=== PATIENT | male | born 1955 | race Caucasian/White ===

== ENCOUNTER 2017-09-13 14:15 | Inpatient (IN) | payer BC, OTHER ==
[~2017-09-13] VITALS: Ht 170.2 cm; Wt 96.2 kg
--- NOTE | ~2017-09-13 | EKG ---
[address] [address] [address] [address] ELECTROCARDIOGRAM REPORT Name: NONI DANIEL [facility] [id number] Admission: 09/13/17 Attend Phys: Discharge: Date of : 57 Report #: [id number] THIS REPORT FOR: //name// [facility] ED Test Date: 2017-09-13 Test Time: 14:20:25 Pat Name: NONI DANIEL Department: Room: Gender: Laserist: [facility] : 1955 Requested By: Lg Alonzo Order Number: [id number] MD: Fernando Shaver Measurements Intervals [place] Rate: 54 P: -21 WI: 170 QRS: 33 QRSD: 106 T: QT: 457 QTc: 434 Interpretive Statements Sinus rhythm Borderline T abnormalities, inferior leads Compared to ECG 03/01/2015 08:00:56 Sinus bradycardia no longer present Possible ischemia no longer present T-wave abnormality still present Electronically Signed On 09-13-2017 16:30:10 PREPRESS OPERATOR by Fernando Shaver [email or web address] <ELECTRONICALLY SIGNED> By: Fernando Shaver MD 09/13/17 1630 1420 1420 Fernando Shaver MD /RIAZ
--- NOTE | ~2017-09-13 | 2DMMODE ---
[facility] [address] [place] [address] 2 D/M-MODE ECHOCARDIOGRAM Name: NONI DANIEL Room #: 429-P [facility] IN ..#: [id number] Admission: 09/13/17 Attend Phys: Sam Joe Discharge: Date of : 57 Date of Service: 09/14/17 1027 Report #: [id number] THIS REPORT FOR: //name// APPROVED REPORT Study performed: 09/14/2017 09:39:17 EXAM: Comprehensive 2D, Doppler, and color-flow Echocardiogram Patient Location: Echo lab Room #: 429 Status: routine BSA: 2.07 HR: 71 bpm BP: 142/77 mmHg Rhythm: NSR Other Information Study Quality: Excellent Indications Near syncope, history of CHF. Hx: CAD, stent, ISCM, HTN, HLP 2D Dimensions RVDd: 29.43 mm IVSd: 12.66 (7-11mm) LVDd: 50.01 mm PWd: 13.47 (7-11mm) Ascending Ao: 37.46 (22-36mm) LVDs: 39.27 (25-40mm) Aortic Root: 41.72 mm Volumes Left Atrial Volume (Systole) Single Plane 4CH: 77.87 mL Single Plane 2CH: 68.57 mL LA ESV Index: 37.00 mL/m2 Aortic Valve AoV Peak Harrison.: 1.43 m/s AO Peak Gr.: 8.22 mmHg LVOT Max P.40 mmHg LVOT Max V: 0.92 m/s Mitral Valve E/A Ratio: 0.8 MV Decel. Time: 185.24 ms MV E Max Harrison.: 0.71 m/s MV A Harrison.: 0.89 m/s [facility] [address] [place] [address] 2 D/M-MODE ECHOCARDIOGRAM Name: NONI DANIEL Room #: 429-P [facility]#: [id number] Admission: 09/13/17 Attend Phys: Sam Joe Discharge: Date of : 57 Date of Service: 09/14/17 1027 Report #: [id number] PHT: 53.72 ms IVRT: 86.51 ms Pulmonary Valve PV Peak Harrison.: 0.96 m/s PV Peak Gr.: 3.72 mmHg Pulmonary Vein P Vein S: 0.58 m/s P Vein A: 0.36 m/s P Vein D: 0.44 m/s P Vein A Dur.: 110.7 msec P Vein S/D Ratio: 1.32 Tricuspid Valve TR Peak Harrison.: 2.54 m/s RAP Estimate: 5.00 mmHg TR Peak Gr.: 25.81 mmHg PA Pressure: 31.00 mmHg Left Ventricle The left ventricle is normal size. mild hypokinesis noted of the apex Mild concentric left ventricular hypertrophy. Left ventricular systolic function is mildly decreased. LVEF is 45-50%. Mild diastolic dysfunction is present (impaired relaxation pattern). Right Ventricle The right ventricle is normal size. The right ventricular systolic function is normal. Atria Left atrium is mildly dilated. The right atrium size is normal. Aortic Valve The aortic valve is normal in structure. No aortic regurgitation is present. There is no aortic valvular stenosis. Mitral Valve The mitral valve is normal in structure. Trace to mild mitral regurgitation. Tricuspid Valve The tricuspid valve is normal in structure. Trace tricuspid regurgitation. Estimated PAP is 31mmHg. Pulmonic Valve The pulmonary valve is normal in structure. Trace pulmonic regurgitation. [facility] [address] [place] [address] 2 D/M-MODE ECHOCARDIOGRAM Name: NONI DANIEL Room #: 429-P [facility] IN ..#: [id number] Admission: 09/13/17 Attend Phys: Sam Joe Discharge: Date of : 57 Date of Service: 09/14/17 1027 Report #: [id number] [place] Aortic root is dilated at 4.2cm. Ascending aorta measures at the upper limits of normal. IVC is normal in size and collapses >50% with inspiration. Pericardium There is no pericardial effusion. <Conclusion> Mild concentric left ventricular hypertrophy. LVEF is 45-50%. Left atrium is mildly dilated. <ELECTRONICALLY SIGNED> By: Lorne Crawford MD, FACC 09/14/17 1027 1027 1027 Lorne Crawford MD, FACC /INF
--- NOTE | ~2017-09-13 | D ---
[facility] [place] [address] DISCHARGE SUMMARY Name: NONI DANIEL Room #: 429-P [facility] IN [facility]#: [id number] Admission: 09/13/17 Attend Phys: Sam Joe MD Discharge: 09/14/17 Date of : 57 Report #: [id number] THIS REPORT FOR: //name// CC: Ida Joe DATE OF SERVICE: 09/14/2017 HISTORY OF PRESENT ILLNESS: The patient is a 62-year-old man with complicated cardiac history, who came to the hospital with dizziness and presyncope. The patient's blood pressure was found to be in 80s systolic, as well as his heart rate was in 40s. The patient is on Coreg. Lately, he has had diminished p.o. intake, and alcohol the night before admission. Mild hypoglycemia was also reported, with blood glucose of 43. The patient has no diabetes. Please refer to admission H and P for details. HOSPITALIZATION COURSE: The patient was hospitalized. Coreg was held. He was given IV fluids. By next morning, the patient's blood pressure was normal, heart rate was above 60, and he was completely asymptomatic. His blood work is unremarkable. His Accu-Cheks remained normal. The patient's near syncope and symptoms are most likely related to dehydration, as well as being on blood pressure medications, including Coreg. Coreg dose is reduced from 12.5 mg a day, to 6.25 mg twice a day. The patient has had cardiac echo, that showed ejection fraction of 45%-50%, which is better from years ago. At that time, ejection fraction was between 40 and 45%. The patient will be discharged home on outpatient followup, in 1 week with his record center coordinator. DISCHARGE DIAGNOSES: 1. Near syncope, due to dehydration and bradycardia from Coreg, as detailed above. 2. One episode of hypoglycemia with glucose of 43. No hypoglycemia is detected during the hospital stay. The patient has no diabetes, he does not take medications that can lower blood sugar. SECONDARY DIAGNOSES: Includes history of myocardial infarction, status post stents; hypertension, and Ceballos's esophagus. DISCHARGE MEDICATIONS: Please refer to medication reconciliation list. As noted, Coreg dose is reduced from 12.5 mg b.i.d., to 6.25 mg b.i.d. DISPOSITION: The patient is discharged home. [address] [address] DISCHARGE SUMMARY Name: TATESHANENONI Room #: 429-P [facility] IN [facility]#: [id number] Admission: 09/13/17 Attend Phys: Sam Joe MD Discharge: 09/14/17 Date of : 57 Report #: [id number] FOLLOWUP PLAN: Follow up with record center coordinator in 1 week. <ELECTRONICALLY SIGNED> By: Sam Joe MD 09/17/17 1906 1047 1143 Sam Joe MD /my
--- NOTE | ~2017-09-13 | HC ---
[facility] [place] [address] CONSULTATION Name: NONI DANIEL Room #: 429-P [facility]#: [id number] Admission: 09/13/17 Attend Phys: Sam Joe MD Discharge: 09/14/17 Date of : 57 Report #: [id number] THIS REPORT FOR: //name// CC: Iad Joe DATE OF SERVICE: 09/13/2017 HISTORY OF PRESENT ILLNESS: The patient is a 62-year-old white male who I was asked to see in the hospital after he had a dizzy spell. The patient has a long history of heart disease. He had previous stents placed in his LAD and right coronary artery in 2009 at [facility]. Repeat heart catheterization in 2012 showed no restenosis of the stents, but a chronically occluded circumflex artery and an ejection fraction of 40%. His last nuclear stress test in 2014 showed an inferior scar with some karime-infarct ischemia. Previous screening showed minimal carotid plaque. Recently, the patient has been doing well and works out on a regular basis both at his home and at a gym. He denies any recent chest pain. He does get short of breath if he over exerts himself. He has had no significant edema. Denies any recent palpitations. Recently, the patient had a runny nose and a cough. This has been going on for 2 days. Today, the patient did not eat breakfast. He then went out to lunch with his . When he was at the cafeteria, he felt lightheaded and fatigued. He then became diaphoretic and laid his head on the table. He did not lose consciousness. Paramedics were called. He was noted to have low heart rate and blood pressure. He was brought to the emergency room for further evaluation and treatment here at [facility]. He denied any palpitations with the episode. He had had no recent vomiting or bleeding. He had had no recent fever. He did not lose consciousness. There was no seizure activity. PAST MEDICAL HISTORY: Significant for hip surgery. He had a recent injection in his knee for arthritis. He has a history of hypertension, hyperlipidemia and Ceballos's esophagus. CURRENT MEDICATIONS: Include: Amlodipine 5 mg a day, carvedilol 12.5 mg twice a day, Plavix 75 mg a day, Crestor 40 mg a day, lisinopril 20 mg twice a day and Protonix 40 mg a day. ALLERGIES: He has no known drug allergies. FAMILY HISTORY: Negative for heart disease. 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 Lives in [place], [place] with his . He used to smoke, no longer smokes, but does have a cigarette only very rarely. Rarely drinks alcohol. [facility] [address] [place] [address] CONSULTATION Name: NONI DANIEL Rhea Room #: 429-P [facility] IN .R.#: [id number] Admission: 09/13/17 Attend Phys: Sam Joe MD Discharge: 09/14/17 Date of : 57 Report #: [id number] REVIEW OF SYSTEMS: He has had no history of stroke, asthma, peptic ulcer disease or liver disease. He has had a colon polyp removed in the past. No history of cancer. No chronic skin condition. PHYSICAL EXAMINATION: GENERAL: Revealed a middle-aged male, lying in his stretcher. He appeared in no distress. VITAL SIGNS: He had a blood pressure 90/70 and pulse is 50. He was afebrile. HEENT: He was anicteric. Conjunctivae pink. Mucous membranes appear moist. NECK: Veins do not appear distended. No carotid bruits. CHEST: Clear to auscultation. CARDIAC: Regular rate and rhythm, no murmur. ABDOMEN: Soft and nontender. EXTREMITIES: Had no edema. Posterior tibial pulse 2+ bilaterally. SKIN: Warm and dry. NEUROLOGIC: Nonfocal. LYMPH: No adenopathy. MUSCULOSKELETAL: Joint effusions. RADIOLOGICAL DATA: ECG shows sinus bradycardia and nonspecific ST-segment changes and compared to ECG from 2015, the T-wave changes actually appear less prominent. His workup in the Emergency Room today, he had a portable chest x-ray that showed normal heart size and clear lung field. LABORATORY DATA: He had lab work. Sodium was 139, potassium 3.9, his BUN is 18, creatinine 1.3 and glucose was 111. His troponin was 0.04. His white blood cell count was 5.7 and hemoglobin 14.6. IMPRESSION AND RECOMMENDATIONS: 1. Dizzy spell. Suspect vasovagal. The patient has not eaten earlier today. 2. Coronary artery disease. Previous stents. No recent angina. I will continue Plavix. 3. Bradycardia. I did recommend decreasing Coreg to 6.25 mg twice a day. 4. Hypotension. I would hold his calcium divya, LOC inhibitor and beta divya at this time. 5. Hyperlipidemia. The patient is on a statin drug. 6. Previous tobacco abuse. 7. History of Ceballos's esophagus. <ELECTRONICALLY SIGNED> By: Lorne Crawford MD, [facility] 09/15/17 1108 1742 0326 Lorne Crawford MD, FACC /nt
[~2017-09-13 14:15] MED LIST: ASPIRIN EC81 M1 PO; CARVEDILOL12.5 MG PO; COREG PO; CRESTOR40 MG PO; EFFIENT10 MG PO; LISINOPRIL5 MG PO; NITROGLYCERIN4.1 GM TL; PEGASUS; PRILOSEC 20 MG20 MG PO
[2017-09-13 14:20] VITALS: BP 90/67
[2017-09-13 14:57] LABS: HEMATOCRIT 43.5 % (42.0-52.0); HEMOGLOBIN 14.6 gm/dL (14.0-18.0); MCHC 33.6 g/dL (28.0-37.0); MCV 89.2 fL (80.0-100.0); RBC 4.88 mil/uL (4.50-6.00); RDW 13.8 % (10.5-14.5); WBC 5.7 thou/uL (4.0-11.0)
[2017-09-13] MEDS ORDERED: NORVASC5 MG PO (15:04)
[2017-09-13] MEDS ORDERED: PROTONIX40 M1 PO (15:04)
[2017-09-13 15:10] LABS: ANION GAP 8 mmol/L (7-16); BUN 18 mg/dL (7-18); CALCIUM 8.6 mg/dL (8.5-10.1); CHLORIDE 105 mmol/L (98-107); CO2 26 mmol/L (21-32); CREATININE 1.3 mg/dL (0.7-1.3); GLUCOSE 111 mg/dL (74-106); POTASSIUM 3.9 mmol/L (3.5-5.1); SODIUM 139 mmol/L (136-145)
[2017-09-13 15:18] LABS: TROPONIN-I < 0.04 ng/mL (<0.06)
[2017-09-13 18:29] VITALS: BP 122/60
[2017-09-13 20:46] VITALS: BP 127/61
[2017-09-14 03:00] VITALS: BP 137/72
[2017-09-14 05:15] LABS: HEMATOCRIT 40.2 % (42.0-52.0); HEMOGLOBIN 13.6 gm/dL (14.0-18.0); MCH 29.9 pg (26.0-34.0); MCHC 33.9 g/dL (28.0-37.0); MCV 88.4 fL (80.0-100.0); PLATELET COUNT 138 thou/uL (150-400); RBC 4.55 mil/uL (4.50-6.00); RDW 14.2 % (10.5-14.5); WBC 5.1 thou/uL (4.0-11.0)
[2017-09-14 05:21] LABS: CREATININE 0.9 mg/dL (0.7-1.3); POTASSIUM 3.7 mmol/L (3.5-5.1)
[2017-09-14 07:16] LABS: ABSOLUTE NEUTROPHILS 3.2 thou/uL (1.4-8.2)
[2017-09-14 07:17] LABS: ANISOCYTOSIS SLIGHT
[2017-09-14 07:20] VITALS: BP 142/77
[2017-09-14] MEDS ORDERED: CARVEDILOL12.5 MG PO (10:50)
[2017-09-14 11:04] VITALS: BP 142/77
== END 2017-09-14 11:23 | disposition home or self-care (01) | DRG 641 ==
LOC: ER 14:15 → EROBS 16:38 → 4E 18:30 → ENTRNSPT 09-14 11:09 → EDTRNSPTSTS 09-14 11:15 → 4E 09-14 11:23
PROVIDERS: Emergency Medicine; Internal Medicine Endocrinology, Diabetes & Metabolism
DX: E86.0 Dehydration (principal); I10 Essential (primary) hypertension; K22.70 Barrett's esophagus without dysplasia; F17.210 Nicotine dependence, cigarettes, uncomplicated; E16.2 Hypoglycemia, unspecified; R00.1 Bradycardia, unspecified; E78.5 Hyperlipidemia, unspecified; I95.9 Hypotension, unspecified; I25.10 Atherosclerotic heart disease of native coronary artery without angina pectoris; G47.30 Sleep apnea, unspecified; I25.2 Old myocardial infarction; Z98.61 Coronary angioplasty status; Z79.899 Other long term (current) drug therapy; Z79.82 Long term (current) use of aspirin
CPT/HCPCS: 10183

== ENCOUNTER 2019-07-25 13:39 | Emergency (ER) | payer BC, OTHER ==
[~2019-07-25] VITALS: Ht 170.2 cm; Wt 106.1 kg
[~2019-07-25 13:39] MED LIST changes: +NORVASC5 MG PO; +PROTONIX40 M1 PO
[2019-07-25 14:19] LABS: ABSOLUTE NEUTROPHILS 4.1 thou/uL (1.4-8.2); BASOPHILS 1.1 % (0.0-2.0); EOSINOPHILS 2.4 % (0.0-3.0); HEMATOCRIT 46.9 % (42.0-52.0); HEMOGLOBIN 15.6 gm/dL (14.0-18.0); LYMPHOCYTES 25.1 % (24.0-44.0); MCH 29.9 pg (26.0-34.0); MCHC 33.3 g/dL (28.0-37.0); MCV 89.9 fL (80.0-100.0); MONOCYTES 10.6 % (1.0-8.0); PLATELET COUNT 190 thou/uL (150-400); POLYS 60.8 % (36.0-66.0); RBC 5.21 mil/uL (4.50-6.00); RDW 13.8 % (10.5-14.5); WBC 6.8 thou/uL (4.0-11.0)
[2019-07-25 14:25] LABS: ANION GAP 11 mmol/L (7-16); BUN 16 mg/dL (7-18); CALCIUM 9.2 mg/dL (8.5-10.1); CHLORIDE 104 mmol/L (98-107); CO2 25 mmol/L (21-32); GLUCOSE 104 mg/dL (74-106); SODIUM 140 mmol/L (136-145)
[2019-07-25 14:27] LABS: PROTIME 10.3 Seconds (9.3-11.4)
[2019-07-25 14:34] LABS: ALBUMIN 3.8 g/dL (3.4-5.0); SGOT 16 U/L (15-37); SGPT 34 U/L (30-65); TOTAL BILIRUBIN 0.5 mg/dL (<0.1-1.0); TOTAL PROTEIN 7.6 g/dL (6.4-8.2); TROPONIN-I <0.06 ng/mL (<0.06)
--- NOTE | 2019-07-25 15:06 | EKG ---
[address] [place] [address] ELECTROCARDIOGRAM REPORT Name: NONI DANIEL [facility] [id number] Admission: 07/25/19 Attend Phys: Discharge: Date of : 57 Report #: [id number] THIS REPORT FOR: //name// [facility] ED Test Date: 2019-07-25 Test Time: 14:18:59 Pat Name: NONI DANIEL Department: Room: Gender: Cyber Incident Responder: Myrtle KRISHNAMURTHY : 1955 Requested By: Jen Boswell Order Number: [id number] MD: Fernando Shaver Measurements Intervals [place] Rate: 70 P: 33 IN: 195 QRS: 7 QRSD: 101 T: 17 QT: 393 QTc: 425 Interpretive Statements Sinus rhythm Ventricular premature complex Abnormal R-wave progression, late transition Compared to ECG 09/13/2017 14:20:25 Ventricular premature complex(es) now present T-wave abnormality no longer present Electronically Signed On 07-25-2019 15:06:05 AGRICULTURAL RESEARCH DIRECTOR by Fernando Shaver [email or web address] <ELECTRONICALLY SIGNED> By: Fernando Shaver MD 07/25/19 1506 1418 1418 Fernando Shaver MD /RIAZ
[2019-07-25 16:29] VITALS: BP 130/77
[2019-07-26] MEDS ORDERED: PLAVIX 75 MG TA75 MG PO (16:14)
[2019-07-26] MEDS ORDERED: TIMOLOL MALEATE5 M2 OPHTHALMIC (16:35)
== END 2019-07-25 16:29 | disposition home or self-care (01) ==
LOC: ER 13:39
PROVIDERS: Emergency Medicine
DX: R20.2 Paresthesia of skin (principal); R53.1 Weakness; I10 Essential (primary) hypertension; G47.30 Sleep apnea, unspecified; Z95.5 Presence of coronary angioplasty implant and graft; Z96.652 Presence of left artificial knee joint; Z87.891 Personal history of nicotine dependence

== ENCOUNTER 2019-07-26 10:46 | Inpatient (IN) | payer BC, OTHER ==
[~2019-07-26] VITALS: Ht 167.6 cm; Wt 110.7 kg
--- NOTE | ~2019-07-26 | HC ---
[facility] [place] [address] CONSULTATION Name: TATESHANENONI Rhea Room #: 203-P [facility] IN ..#: [id number] Admission: 07/26/19 Attend Phys: Jeff Mercado MD Discharge: Date of : 57 Report #: [id number] THIS REPORT FOR: //name// CC: Jeff Baird DATE OF SERVICE: 07/27/2019 REASON FOR CONSULTATION: Embolic event. HISTORY OF PRESENT ILLNESS: This is a very pleasant 64-year-old gentleman with a prior history of coronary artery disease, having had myocardial infarction in 2008 with stenting in 2008 and 2010, presented to the Emergency Room with weakness and lack of strength of the left side. The patient states that he came to the Emergency Room approximately 2 days ago for similar symptoms and thought he had improved at discharge from the ER. Upon entering his car at that time, he notes there was no improvement, but he has already been discharged and he proceeded home. In the interim, there has been no improvement of the symptomatology at all. The patient describes continued weakness of the left arm and left leg where he is walking "as a drunk." He denies orthopnea or PND. He has not had any recent episodes of chest tightness, heaviness or fullness similar or dissimilar from his myocardial infarction. He denies any palpitations. He had no amaurosis fugax. PAST MEDICAL HISTORY: 1. Coronary artery disease as stated above. 2. Hypertension. 3. Gastroesophageal reflux with Ceballos's disease. 4. Sleep apnea syndrome, intolerant of CPAP. PAST SURGICAL HISTORY: 1. Significant for coronary stenting as stated above. 2. Left total hip replacement in 2005. MEDICATIONS: At home are Coreg 12.5 mg tablets 6.25 b.i.d., Plavix 75 mg daily, timolol ophthalmic daily, aspirin 81 mg daily, rosuvastatin 40 mg daily, lisinopril 5 mg daily, sublingual nitroglycerin p.r.n., pantoprazole 40 mg daily, amlodipine 5 mg daily. ALLERGIES: No known drug allergies. SOCIAL HISTORY: The patient is . Consumes alcohol socially. He is a former smoker, has not smoked since his myocardial infarction. Does not use recreational drugs. Does not exercise regularly [place] [address] CONSULTATION Name: NONI DANIEL Rhea Room #: 203-P [facility] IN [facility].#: [id number] Admission: 07/26/19 Attend Phys: Jeff Mercado MD Discharge: Date of : 57 Report #: [id number] REVIEW OF SYSTEMS: Except for symptoms previously mentioned and those commensurate with comorbid state, the 10-point review of system is negative. LABORATORY DATA: Demonstrates a potassium of 4.0, BUN and creatinine are 15 and 1.1. HDL is 39, LDL 72 with a total cholesterol of 130. H and H is 15.6 and 46.5 with a platelet count of 190,000. RADIOLOGIC: Demonstrates MRI of the brain with multiple small scattered area which may represent tiny infarcts, likely of embolic origin. Electrocardiogram: Normal sinus rhythm, nonspecific ST-T wave changes. PHYSICAL EXAMINATION: VITAL SIGNS: Noted and reviewed in the chart. HEENT: Normocephalic, atraumatic. Pupils are equal, round, reactive to light and accommodation. Extraocular muscles are intact. Sclerae and conjunctivae are anicteric. NECK: JVD is normal. Carotid upstrokes are bilaterally symmetrical. No bruits are heard. No thyromegaly. No lymphadenopathy. LUNGS: Clear to auscultation. No wheezes, rhonchi or crackles. No CVA tenderness. CARDIAC: Demonstrates a regular rhythm. Normal first and second heart sounds. No ventricular or atrial gallops, no rubs noted. No murmurs. No lifts or heaves, PMI normal. ABDOMEN: Soft, nontender, nondistended. Normal bowel sounds. EXTREMITIES: Without cyanosis, clubbing or edema. Distal pulses are intact. DTR symmetrical. NEUROLOGIC: Cranial nerves 2-12 are grossly normal and symmetrical. PSYCHIATRIC: Alert, oriented with normal affect. SKIN: Warm and dry. IMPRESSION: 1. Left-sided weakness with corresponding right-sided lesions consistent with embolic event. The patient has an MRA of the [place], etc. and carotid duplex that are pending. If there is no significant abnormality in his carotid arteries, then the likelihood of atrial fibrillation being the source of the emboli is possible and monitoring will be appropriate as an outpatient. Until the diagnosis of atrial fibrillation can be established, anticoagulation with full anticoagulants would be not appropriate. 2. Coronary artery disease, status post stenting, asymptomatic, doing very well clinically. He states he has had a perfusion scan within the last 3-5 years, which was negative and was done for routine followup. In view of this, I am not going to make any other changes at this juncture. 3. Dyslipidemia. The patient is on significant dose of rosuvastatin and his LDL is under 100, but not under 70. I discussed the [place] [employer] step 1 diet with him and his spouse of which they do voice understanding. [facility] [address] [place] [address] CONSULTATION Name: NONI DANIEL Room #: 203-P [facility] IN .[place].#: [id number] Admission: 07/26/19 Attend Phys: Jeff Mercado MD Discharge: Date of : 57 Report #: [id number] 4. Hypertension. The patient states his blood pressure is under good control and has not had any episodes of elevation. In addition to this, the appearance of MRI is not that of hypertensive cerebrovascular accidents, but more of embolic and therefore no need to make any other changes. I did touch base and discussed with him nonpharmacologic treatment of hypertension for which they both voiced understanding. By: 20 32 Gregorio Coleman MD /nt
[2019-07-26 10:47] VITALS: BP 136/79
[2019-07-26 11:34] LABS: HEMOGLOBIN 15.6 gm/dL (14.0-18.0); RDW 13.9 % (10.5-14.5)
[2019-07-26 11:36] LABS: ABSOLUTE NEUTROPHILS 3.7 thou/uL (1.4-8.2); BASOPHILS 0.8 % (0.0-2.0); HEMATOCRIT 46.5 % (42.0-52.0); LYMPHOCYTES 24.5 % (24.0-44.0); MCH 30.3 pg (26.0-34.0); MCHC 33.6 g/dL (28.0-37.0); MCV 90.4 fL (80.0-100.0); MONOCYTES 9.4 % (1.0-8.0); PLATELET COUNT 190 thou/uL (150-400); POLYS 63.3 % (36.0-66.0); RBC 5.14 mil/uL (4.50-6.00); WBC 5.9 thou/uL (4.0-11.0)
[2019-07-26 11:38] LABS: CALCIUM 9.1 mg/dL (8.5-10.1); CREATININE 1.1 mg/dL (0.7-1.3)
[2019-07-26 11:44] LABS: ALBUMIN 3.7 g/dL (3.4-5.0); DIRECT BILIRUBIN 0.1 mg/dL (<0.1-0.2); TOTAL BILIRUBIN 0.5 mg/dL (<0.1-1.0); TOTAL PROTEIN 7.5 g/dL (6.4-8.2)
[2019-07-26 13:46] LABS: APTT 30.6 Seconds (24.5-32.8); PROTIME 10.3 Seconds (9.3-11.4)
[2019-07-26 14:02] VITALS: BP 123/63
[2019-07-26 15:02] VITALS: BP 128/76
[2019-07-26 15:16] LABS: CHOLESTEROL 130 mg/dL (<200); HDL CHOLESTEROL 39 mg/dL (>40); LDL CHOLESTEROL 72 mg/dL (<100); TC:HDL 3.3 Ratio (Not establshd); TRIGLYCERIDE 97 mg/dL (<150); VLDL 19 mg/dL (<40)
[2019-07-26 15:20] VITALS: BP 128/79
[2019-07-26] MEDS ORDERED: PLAVIX 75 MG TA75 MG PO (16:14)
[2019-07-26] MEDS ORDERED: TIMOLOL MALEATE5 M2 OPHTHALMIC (16:35)
--- NOTE | 2019-07-26 20:00 | NUR ---
ASSUMED CARE OF THE PATIENT AT 1505 FROM ED. PATIENT HAD VENOUS DOPPLER OF LE SOON HE ARRIVED ON THE UNIT. VITALS, ADMISSION AND ASSESSMENT COMPLETED. PATIENT'S WAS AT THE BEDSIDE. PATIENT OBSERVED WALKING IN HIS ROOM WITHOUT ANY ASSIST AND WAS STEADY. PATIENT DENIES ANY FEELING OF CONFUSION OR CHANGE IN SENSATION. PATIENT HAS EQUAL STRENGTH IN ALL EXTREMITIES. PATIENT TO CONTINUE WITH POC. ECHO ORDERED, CONSULTS FOR NEURO AND CARDIO.
[2019-07-26 20:09] VITALS: BP 129/78
[2019-07-27 00:04] VITALS: BP 125/65
[2019-07-27 03:22] LABS: HEMATOCRIT 44.2 % (42.0-52.0); HEMOGLOBIN 14.5 gm/dL (14.0-18.0); MCH 29.7 pg (26.0-34.0); MCHC 32.7 g/dL (28.0-37.0); MCV 90.7 fL (80.0-100.0); RBC 4.87 mil/uL (4.50-6.00); RDW 13.5 % (10.5-14.5); WBC 7.1 thou/uL (4.0-11.0)
[2019-07-27 03:58] LABS: CALCIUM 8.9 mg/dL (8.5-10.1); POTASSIUM 3.5 mmol/L (3.5-5.1)
[2019-07-27 04:27] VITALS: BP 117/57
--- NOTE | 2019-07-27 06:56 | NUR ---
ASSUME CARE 1900. PT/VITALS STABLE. NO STROKE-LIKE SYMPTOMS NOTED. PATIENT TOLERATES ACTIVITY WELL. NO RESIDUAL WEAKNESS NOTED. NIH ASSESSMENT DONE WITH NO ABDNORMALITIES NOTED. ASSESSMENT CHARTED. PROGRESSING WELL WITH POC. POSSIBLE DISCHARGE WITHIN 1-2 DAYS.
[2019-07-27 08:45] VITALS: BP 112/69
[2019-07-27 12:57] VITALS: BP 127/70
[2019-07-27 17:27] VITALS: BP 144/82
--- NOTE | 2019-07-27 19:58 | NUR ---
ASSUMED CARE OF PATIENT AT 0700. PATIENT NEURO ASSESSMENT IS RELATIVE FOR LEFT LEG DELAY, PATIENT STATES THAT THIS IS NOT MUCH DIFFERENT THAN HIS NORMAL DUE TO PREVIOUS LEFT HIP SURGERY. DENIES ANY CHEST PAIN OR SHORTNESS OF AIR. ASSESSMENT COMPLETED. TELE STRIPS PRINTED AND IN CHART. PATIENT'S IS AT THE BEDSIDE. PATIENT AMBULATED THE UNIT MULTIPLE TIMES WITH HIS WITHOUT ANY DIFFICULTY. PATIENT HAD AN EPISODE OF CRYING AND SEVERE ANXIETY, DR. RIBERA ORDERED XANAX WHICH WAS INCREDIBLY HELPFUL FOR THE PATIENT AND ALLEVIATED ANY ANXIETY. PATIENT SEEN BY CARDIO AND NEURO. PATIENT TO CONTINUE WITH POC.
[2019-07-27 20:13] VITALS: BP 131/98
--- NOTE | 2019-07-28 05:28 | NUR ---
PATIENTS CARES WERE ASSUMED AT SHIFT CHANGE. PATIENT WAS ASSESSED AND MEDS WERE PASED. PATIENT REQUESTED TO NOT BE DISTERBED FFROM 10PM TO 0600. PATIENT BELIEVES HE IS GOING HOME TODAY AFTER SOME TESTING. PATIENT HAS BEEN WORKING WITH PT.
[2019-07-28 08:10] VITALS: BP 140/81
--- NOTE | 2019-07-28 09:17 | 2DMMODE ---
[facility] [address] [place] [address] 2 D/M-MODE ECHOCARDIOGRAM Name: NONI DANIEL Room #: 203-P [facility] IN [facility]#: [id number] Admission: 07/26/19 Attend Phys: Jeff Mercado MD Discharge: Date of : 57 Report #: [id number] THIS REPORT FOR: //name// APPROVED REPORT Study performed: 07/28/2019 08:25:04 EXAM: Comprehensive 2D, Doppler, and color-flow Echocardiogram Patient Location: Echo lab Room #: 203 Status: routine BSA: 2.18 HR: 53 bpm BP: 131/98 mmHg Other Information Study Quality: Adequate Indications CVA/TIA CAD Hypertension/HDD Echo Enhancing Agent Indication: Rule out Shunt Agent(s) / Amount(s) Used: Agitated Saline 6 cc 2D Dimensions RVDd: 36.29 mm IVSd: 14.69 (7-11mm) LVOT Diam: 23.13 (18-24mm) LVDd: 45.72 mm PWd: 16.25 (7-11mm) Ascending Ao: 34.35 (22-36mm) LVDs: 31.14 (25-40mm) Aortic Root: 38.87 mm IVC: 20.00 mm Volumes Left Atrial Volume (Systole) Single Plane 4CH: 60.38 mL Single Plane 2CH: 70.86 mL LA ESV Index: 32.00 mL/m2 Aortic Valve AoV Peak Harrison.: 1.13 m/s AO Peak Gr.: 5.07 mmHg LVOT Max P.52 mmHg LVOT Max V: 0.79 m/s PETER Vmax: 2.96 cm2 [facility] [place] [address] 2 D/M-MODE ECHOCARDIOGRAM Name: NONI DANIEL Room #: 203-P [facility] IN [facility]#: [id number] Admission: 07/26/19 Attend Phys: Jeff Mercado MD Discharge: Date of : 57 Report #: [id number] Mitral Valve E/A Ratio: 1.1 MV Decel. Time: 254.06 ms MV E Max Harrison.: 0.82 m/s MV A Harrison.: 0.72 m/s MV PHT: 73.68 ms IVRT: 128.03 ms Pulmonary Valve PV Peak Harrison.: 0.74 m/s PV Peak Gr.: 2.21 mmHg Pulmonary Vein P Vein S: 0.53 m/s P Vein A: 0.21 m/s P Vein D: 0.58 m/s P Vein A Dur.: 159.2 msec P Vein S/D Ratio: 0.91 Tricuspid Valve TR Peak Harrison.: 2.45 m/s RAP Estimate: 5.00 mmHg TR Peak Gr.: 23.93 mmHg PA Pressure: 29.00 mmHg Left Ventricle The left ventricle is normal size. Moderate concentric left ventricular hypertrophy. Left ventricular systolic function is borderline. LVEF is 50%. Moderate diastolic dysfunction is present (pseudonormal filling). Right Ventricle The right ventricle is normal size. The right ventricular systolic function is normal. Atria The left atrium size is normal. No shunting by contrast bubble injection. The right atrium size is normal. Aortic Valve The aortic valve is normal in structure. Trace aortic regurgitation. There is no aortic valvular stenosis. Mitral Valve The mitral valve is normal in structure. Mild mitral regurgitation. No evidence of mitral valve stenosis. Tricuspid Valve The tricuspid valve is normal in structure. Trace tricuspid [facility] [address] [address] 2 D/M-MODE ECHOCARDIOGRAM Name: NONI DANIEL Rhea Room #: 203-P [facility] IN .R.#: [id number] Admission: 07/26/19 Attend Phys: Jeff Mercado MD Discharge: Date of : 57 Report #: [id number] regurgitation. PAP is estimated at 29 mmHg. Pulmonic Valve The pulmonary valve is normal in structure. Trace to mild pulmonic regurgitation. Great Vessels The aortic root is normal in size. IVC is normal in size and collapses >50% with inspiration. Pericardium There is no pericardial effusion. <Conclusion> The left ventricle is normal size. LVEF is 50%. The aortic valve is normal in structure. Trace aortic regurgitation. The mitral valve is normal in structure. Mild mitral regurgitation. The tricuspid valve is normal in structure. Trace tricuspid regurgitation. PAP is estimated at 29 mmHg. The pulmonary valve is normal in structure. Trace to mild pulmonic regurgitation. There is no pericardial effusion. No shunting by contrast bubble injection. <ELECTRONICALLY SIGNED> By: Gregorio Coleman MD 07/28/19915 5 5 Gregorio Coleman MD /INF
[2019-07-28 11:35] VITALS: BP 133/67
[2019-07-28 14:14] VITALS: BP 133/67
[2019-07-28] MEDS ORDERED: PHYSICAL THERAPY (14:55)
--- NOTE | 2019-07-28 16:07 | NUR ---
ASSUMED CARE OF PT AT SHIFT CHANGE. ASSESSMENT CHARTED. MEDS GIVEN PER SEP. VSS. PT A&OX4. WORKED WITH PT, WALKED IN VILLAR. LOOP RECORDER PLACED. DISCHARGE INSTRUCTIONS AND EDUCATION COMPLETE. TELE AND IV DC'D. PT LEFT VIA VOLUNTEER WHEELCHAIR TO IN OWN CAR.
[2019-07-28 16:09] VITALS: BP 133/67
--- NOTE | 2019-07-29 02:02 | LINQ ---
[facility] [email or web address] [address] LINQ PROCEDURE REPORT Name: NONI DANIEL Room #[facility] [id number] Admission: 07/26/19 Attend Phys: Jeff Mercado MD Discharge: 07/28/19 Date of : 57 Report #: [id number] THIS REPORT FOR: //name// APPROVED REPORT Patient Location: In-Patient Room #: Stress Nurse: Procedure: Insertion of a [employer] implantable loop recorder Indications: Cryptic stroke Brief description of procedure: After informed consent was obtained the patient was brought to the medical regimen prepped and hold. The left chest was prepped and draped in usual sterile manner. Utilizing 1% lidocaine a wheal was raised and instillation in the proposed track was carried forth. Utilizing an 11 blade a small incision was made. With blunt and sharp dissection a check was developed in which the [employer] device was deployed without complications. Serial numbers are noted in the chart. Subcutaneous tissue was closed with 2 simple interrupted stitches in the skin was closed with a 3-0 subcuticular stitch. Dermabond Steri-Strips 4 x 4 OpSite was utilized. No complications patient tolerated procedure well Conclusion: Successful insertion of a implantable loop recorder Recommendations: Routine post insertion protocol Conclusion <ELECTRONICALLY SIGNED> By: Gregorio Coleman MD 07/29/19201 1 1 Gregorio Coleman MD /INF
== END 2019-07-28 15:43 | disposition home or self-care (01) | DRG 41 ==
LOC: ER 10:46 → 2N 13:33 → EROBS 13:33 → 2N 15:02 → ENTRNSPT 07-28 14:35 → EDTRNSPTSTS 07-28 14:38 → 2N 07-28 15:43
PROVIDERS: Emergency Medicine; ADMIT Hospitalist
PROC: 0JH602Z Insertion of Monitoring Device into Chest Subcutaneous Tissue and Fascia, Open Approach (ICD-10-PCS; principal; 2019-07-26)
DX: I63.431 Cerebral infarction due to embolism of right posterior cerebral artery (principal); G81.91 Hemiplegia, unspecified affecting right dominant side; G81.94 Hemiplegia, unspecified affecting left nondominant side; Z96.642 Presence of left artificial hip joint; K22.70 Barrett's esophagus without dysplasia; I10 Essential (primary) hypertension; I25.10 Atherosclerotic heart disease of native coronary artery without angina pectoris; K21.9 Gastro-esophageal reflux disease without esophagitis; E78.5 Hyperlipidemia, unspecified; G47.33 Obstructive sleep apnea (adult) (pediatric); Z80.8 Family history of malignant neoplasm of other organs or systems; I25.2 Old myocardial infarction; Z95.5 Presence of coronary angioplasty implant and graft; Z79.899 Other long term (current) drug therapy; Z79.82 Long term (current) use of aspirin; Z87.891 Personal history of nicotine dependence; Z82.3 Family history of stroke; Z82.49 Family history of ischemic heart disease and other diseases of the circulatory system
CPT/HCPCS: 10081; 10797

== ENCOUNTER 2019-12-20 14:58 | Inpatient (IN) | payer BC, OTHER ==
[2019-12-20] VITALS (11 sets, daily range): BP systolic 108–1135; BP diastolic 72–89
[~2019-12-20] VITALS: Ht 167.6 cm; Wt 106.6 kg
[~2019-12-20 14:58] MED LIST changes: +PHYSICAL THERAPY; +PLAVIX 75 MG TA75 MG PO; +TIMOLOL MALEATE5 M2 OPHTHALMIC
[2019-12-20 15:23] LABS: ABSOLUTE NEUTROPHILS 6.4 thou/uL (1.4-8.2); BASOPHILS 0.7 % (0.0-2.0); EOSINOPHILS 0.8 % (0.0-3.0); HEMATOCRIT 46.2 % (42.0-52.0); HEMOGLOBIN 15.9 gm/dL (14.0-18.0); LYMPHOCYTES 16.3 % (24.0-44.0); MCH 31.1 pg (26.0-34.0); MCHC 34.4 g/dL (28.0-37.0); MCV 90.4 fL (80.0-100.0); MONOCYTES 7.4 % (1.0-8.0); PLATELET COUNT 193 thou/uL (150-400); POLYS 74.8 % (36.0-66.0); RBC 5.11 mil/uL (4.50-6.00); RDW 14.2 % (10.5-14.5); WBC 8.5 thou/uL (4.0-11.0)
[2019-12-20 15:31] LABS: ANION GAP 8 mmol/L (7-16); BUN 17 mg/dL (7-18); CALCIUM 9.1 mg/dL (8.5-10.1); CHLORIDE 105 mmol/L (98-107); CO2 27 mmol/L (21-32); CREATININE 1.4 mg/dL (0.7-1.3); GLUCOSE 111 mg/dL (74-106); POTASSIUM 4.3 mmol/L (3.5-5.1); SODIUM 140 mmol/L (136-145)
[2019-12-20] MEDS ORDERED: ELIQUIS5 MG PO (15:31)
[2019-12-20 15:37] LABS: APTT 30.1 Seconds (24.5-32.8); INR 1.1; PROTIME 11.1 Seconds (9.3-11.4)
[2019-12-20 15:40] LABS: DIRECT BILIRUBIN < 0.1 mg/dL (<0.1-0.2); SGOT 19 U/L (15-37); SGPT 30 U/L (30-65); TOTAL BILIRUBIN 0.8 mg/dL (<0.1-1.0); TOTAL PROTEIN 7.7 g/dL (6.4-8.2); TROPONIN-I <0.06 ng/mL (<0.06)
--- NOTE | 2019-12-20 15:59 | NUR ---
PT ESCORTED TO [facility] AT 1556
--- NOTE | 2019-12-20 19:16 | NUR ---
PT ADMITED FROM [facility]. ADMISSION HX AND ASSESSMENT COMPLETED. VSS. DENIED HAVING PAIN OR DISCOMFORT. RADIAL CLOSURE INTACT. POST OP INSTRUCTIONS GIVEN TO PT. PT VERBERLISED UNDERSTANDING. WILL CONTINUE TO MONITOR.
[2019-12-21 01:45] VITALS: BP 146/97
[2019-12-21 04:00] VITALS: BP 149/93
--- NOTE | 2019-12-21 07:33 | NUR ---
ASSUMED PT CARE AT 1900, PT IS AWAKE, ALERT AND ORIENTEDX4, DENIES PAIN OR SOB, SR/SB ON THE MONITOR, RADIAL SITE CDI, VSS, DENIES ANY CONCERNS AT THIS TIME, RESTING IN BED, NO DISTRESS NOTED
[2019-12-21 07:50] VITALS: BP 152/98
[2019-12-21 08:48] LABS: HEMATOCRIT 45.8 % (42.0-52.0); HEMOGLOBIN 15.3 gm/dL (14.0-18.0); MCH 30.3 pg (26.0-34.0); MCHC 33.5 g/dL (28.0-37.0); MCV 90.5 fL (80.0-100.0); RBC 5.06 mil/uL (4.50-6.00); WBC 8.2 thou/uL (4.0-11.0)
[2019-12-21 09:12] LABS: ALBUMIN 3.7 g/dL (3.4-5.0); CALCIUM 8.7 mg/dL (8.5-10.1); CREATININE 1.2 mg/dL (0.7-1.3); POTASSIUM 3.7 mmol/L (3.5-5.1); TOTAL BILIRUBIN 0.8 mg/dL (<0.1-1.0); TOTAL PROTEIN 7.3 g/dL (6.4-8.2)
[2019-12-21 11:35] VITALS: BP 140/82
--- NOTE | 2019-12-21 12:05 | EKG ---
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: [facility] : 1955 Requested By: Jen Boswell Order Number: [id number] MD: David Call Measurements Intervals Porter Rate: 74 P: 21 NJ: 187 QRS: 18 QRSD: 100 T: 70 QT: 389 QTc: 432 Interpretive Statements Sinus rhythm Inferior infarct, acute Extensive anterior infarct, acute (LAD) Compared to ECG 07/25/2019 14:18:59 Myocardial infarct finding now present Ventricular premature complex(es) no longer present Electronically Signed On 12-21-2019 12:03:29 CDT by David Call [email or web address] <ELECTRONICALLY SIGNED> By: David Call MD 12/21/19 1203 1506 1506 David Call MD /EPI
--- NOTE | 2019-12-21 12:05 | EKG ---
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 : 1955 Requested By: David Call Order Number: [id number] MD: David Call Measurements Intervals [place] Rate: 74 P: 26 TN: 188 QRS: 16 QRSD: 97 T: 55 QT: 385 QTc: 428 Interpretive Statements Sinus rhythm Anterior infarct, acute (LAD) ST elevation, consider inferior injury Lateral leads are also involved Compared to ECG 07/25/2019 14:18:59 Myocardial infarct finding now present ST (T wave) deviation now present Ventricular premature complex(es) no longer present Electronically Signed On 12-21-2019 12:03:33 CDT by David Call [email or web address] <ELECTRONICALLY SIGNED> By: David Call MD 12/21/19 1203 1550 1550 David Call MD /EPI
--- NOTE | 2019-12-21 12:08 | EKG ---
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 : 1955 Requested By: David Call Order Number: [id number] MD: David Call Measurements Intervals [place] Rate: 68 P: 53 LA: 189 QRS: -9 QRSD: 106 T: 48 QT: 390 QTc: 415 Interpretive Statements Sinus rhythm Ventricular premature complex Abnormal R-wave progression, late transition Borderline repolarization abnormality Baseline wander in lead(s) I,III,aVR,aVL,aVF,V2,V3,V4,V5,V6 Compared to ECG 07/25/2019 14:18:59 No significant changes Electronically Signed On 12-21-2019 12:06:49 CDT by David Call [email or web address] <ELECTRONICALLY SIGNED> By: David Call MD 12/21/19 1206 0850 0850 David Call MD /EPI
--- NOTE | 2019-12-21 12:26 | CATHLAB ---
[facility] [address] [place] [address] INVASIVE PROCEDURE REPORT Name: NONI DANIEL Room #: 208-P [facility] MIlir#: [id number] Admission: 12/20/19 Attend Phys: David Call MD Discharge: Date of : 57 Report #: [id number] THIS REPORT FOR: cc: Ida Baird MD, Cynthia MD Park, Jin S. MD ~ APPROVED REPORT Study performed: 12/20/2019 15:46:27 Patient Details Patient Status: In-Patient Room #: 219 The patient is a 64 year-old male Event Personnel David Call Spring Intern, Meggan Orta RN RN, Elissa Dey Monitor, Suzy Sanchez RTR, PATIENT REGISTRAR Scrub Procedures Performed Art Access - R radial artery 99671 Initial Mod Sed Same Phys/QHP Gr5y 614811 66574 Mod Sed Same Phys/QHP Ea 617566 Left Heart Cath w/or w/o Coronaries [id number] [facility] DIANE Revasc AMI Total/Sub Single RCA C9606 AMIREVSING Hemostasis with Hemoband Indication STEMI , Dyspnea, Chest pain, History of FL with stent to LAD and RCA. Risk Factors Cerebrovascular Disease, Hypercholesterolemia, Coronary Artery DiseaseHypertension Previous Procedures/Diagnoses Previous CVAPrevious PCI, Previous FL Procedure Narrative The patient was brought emergently to the Cardiac Catheterization Laboratory and was prepped and draped in a sterile manner. The Right Wrist^ was infiltrated with 1% Lidocaine subcutaneous anesthesia. A TRANSRADIAL SLENDER 6F GLIDESHEATH KIT #[id number] sheath was inserted into the Right Radial Artery^. Coronary angiography was performed using coronary diagnostic catheters. The right coronary system was accessed and visualized with a JR 4 catheter. The left coronary system was accessed and visualized with a VISTA 6FR XB 3.5 #[id number] [facility] [place] [address] INVASIVE PROCEDURE REPORT Name: NONI DANIEL Room #: 208-P [facility] IN [facility]#: [id number] Admission: 12/20/19 Attend Phys: David Call MD Discharge: Date of : 57 Report #: [id number] catheter. The left ventricle was accessed and visualized with a Pigtail catheter. Left ventricular/Aortic Valve gradient assessed via catheter pullback. Left ventriculogram was performed in ROWLEY projection. Closure device was deployed with a Fr VASC BAND L 27CM #[id number]. The patient tolerated the procedure well and there were no complications associated with the procedure. Intraoperative Conscious Sedation Sedation start time: 15:58 Case end Time: 15:58 Fentanyl 50.0 mcg Versed 1.0 mg Fluoro Time: 12.20 minutes Dose: DAP 99355.00 cGycm2 1929 mGy Contrast Type and Amount: Visipaque 150 ml Coronary Angiography The patient's coronary anatomy is right dominant. Diagnostic Cath Left Main This is a large-caliber vessel, angiographically normal. LAD The LAD is a moderate-sized caliber vessel, traverses the anterior wall and wraps around the apex. There is a stent in the proximal segment, patent with minimal restenosis. Diagonal 1 The first diagonal artery has a high takeoff from the LAD. Appears to be chronically occluded in the proximal segment. This is unchanged from prior procedures. Circumflex The left circumflex artery supplies to OM vessels. There is mild to moderate diffuse disease in the midsegment. OM1 This is chronically occluded at the ostium. The distal vessel is filled via collateral circulation. This is unchanged from prior procedures. OM2 This is a patent vessel, with mild diffuse disease proximally. Right Coronary The RCA is a dominant vessel with multiple overlapping stents in the proximal and mid segments. Within the midsegment, there is a severe restenotic lesion, 95%. R PDA This is a patent vessel, with no flow-limiting lesions. RPLV This is a patent vessel, with no flow-limiting lesions. Left Ventriculography The left ventricle is normal in size with Decreased contractility. The left ventricular ejection fraction is estimated to be 40-45%. There is hypokinesis of the anterolateral [place] [address] INVASIVE PROCEDURE REPORT Name: NONI DANIEL Room #: 208-P [facility] M.R.#: [id number] Admission: 12/20/19 Attend Phys: David Call MD Discharge: Date of : 57 Report #: [id number] to prior procedures. There is inferior wall hypokinesis. Hemodynamics The aortic pressure is 113/76 mmHg with a mean of 92 mmHg. The left ventricular pressure is 130/2 mmHg with a mean of mmHg. The left ventricular end diastolic pressure is 38 mmHg. PCI Technique Lesion Percutaneous coronary intervention was performed on the Proximal/mid right coronary artery. The lesion stenosis prior to intervention was 95% with NICHOLAS 3 flow. A VISTA 6FR JR 4 #[id number] Guide Catheter was used to engage the ostium. A Luge Wire .014 x 182CM #[id number] Interventional Guidewire was used to cross the lesion. BALLOON DILATION A Balloon catheter Euphora RX 3.0 x 12 #[id number] was inserted and inflated up to 12.00atm for 17seconds. Additional Inflation: 14.00atm for 12seconds. Additional Inflation: 14.00atm for 15seconds. STENT DEPLOYMENT A drug-eluting stent XIENCE YUVAL RX 3.25 X 18 #[id number] was inserted and inflated up to 14.00atm for 25seconds. POST STENT DEPLOYMENT BALLOON DILATION A Balloon catheter TREK NC RX 3.25 X 15 #[id number] was inserted and inflated up to 16.00atm for 20seconds. Additional Inflation: 18.00atm for 15seconds. Additional Inflation: 18.00atm for 16seconds. Final angiography reveals 5 % stenosis with NICHOLAS 3 flow. Conclusion 1. Successful insertion of a drug-eluting stent into the mid RCA restenosis. 2. There is a patent stent in the proximal LAD. 3. Chronic occlusions involving the first diagonal artery and first obtuse marginal artery, unchanged compared to prior procedures. 4. Mild to moderate segmental LV dysfunction. New wall motion normality noted in the inferior segment. 5. Recommend antiplatelet therapy and aggressive risk factor management. <ELECTRONICALLY SIGNED> By: David Call MD 12/21/19 1224 1224 0738 David Call MD /INF
--- NOTE | 2019-12-21 12:28 | H ---
[facility] [place] [address] HISTORY AND PHYSICAL Name: NONI DANIEL Room #: 208-P [facility] Mily#: [id number] Admission: 12/20/19 Attend Phys: David Call MD Discharge: Date of : 57 Report #: [id number] THIS REPORT FOR: cc: Ida Baird MD,Ida Call,David Parson MD ~ CC: Ida Call DATE OF SERVICE: 12/20/2019 INDICATION: Chest pain. HISTORY OF PRESENT ILLNESS: This is a 64-year-old gentleman with a history of DC, stent, CVA, PAF, hypertension, presenting with acute onset of chest pain. He was outside, cutting the grass, when he developed lightheadedness, dyspnea and diaphoresis. He then developed back pain, radiating to the front of his chest. This is similar to his previous DC presentation 2009. He went inside and symptoms persisted and he came to the ER for an evaluation. ECG reveals significant ST segment elevation in the precordial leads. He denies any recent episodes of fever, chills, cough or orthopnea. PAST MEDICAL HISTORY: DC in 2009 with stent placement. Another stent procedure the year after by Dr. Crawford. Hypertension, hypercholesterolemia. TIA/CVA in 06/2019. LINQ device placed, found to have paroxysmal AFib and started on Eliquis about a month ago. ALLERGIES: None. MEDICATIONS: Include lisinopril, Coreg, amlodipine, Crestor at night, Eliquis 5 mg b.i.d., Protonix. SOCIAL HISTORY: Negative for tobacco use. FAMILY HISTORY: Brother with a history of an DC. REVIEW OF SYSTEMS: A full 10-point review of systems performed. Only the pertinent positives and negatives are described in the HPI. PHYSICAL EXAMINATION: VITAL SIGNS: Blood pressure is 140/70 and heart rate is 74 beats per minute. GENERAL APPEARANCE: This is a mildly overweight male, in mild distress. HEENT: Normocephalic, atraumatic. Oral mucosa moist. NECK: Supple. LUNGS: Clear to auscultation. CARDIAC: Regular rate and rhythm, S1, S2 positive. [facility] [address] [place] [address] HISTORY AND PHYSICAL Name: NONI DANIEL Room #: 208-P [facility]..#: [id number] Admission: 12/20/19 Attend Phys: David Call MD Discharge: Date of : 57 Report #: [id number] ABDOMEN: Soft, nontender. EXTREMITIES: No edema, no cyanosis. ECG reveals sinus rhythm with [address] segment elevation in the precordial leads and mild elevation in inferior leads. LABORATORY VALUES: Pending. ASSESSMENT AND PLAN: 1. Acute anterior wall myocardial infarction. The patient was only on Eliquis and aspirin was discontinued. I spoke to the patient and his regarding the risks and benefits of cardiac catheterization including angioplasty. They voiced understanding and wishes to proceed. 2. Hypertension, resume lisinopril, Coreg and amlodipine. 3. Hypercholesterolemia, continue with Crestor. 4. Paroxysmal atrial fibrillation, hold Eliquis for now. <ELECTRONICALLY SIGNED> By: David Call MD 12/21/19 1228 1601 1736 David Call MD /nt
[2019-12-21 15:55] VITALS: BP 136/81
--- NOTE | 2019-12-21 16:59 | NUR ---
ASSESSMENT CHARTED. PT ALERT AND ORIENTED. VSS. DENIED HAVING PAIN OR DISCOMFORT. AMBULATED NUMEROUS TIMES IN THE HALLWAY. RIGHT WRIST INCISION C/D/I. NO HEMATOMA NOTED. SR/ SB ON TELE. WILL CONTINUE TO MONITOR.
[2019-12-21 20:00] VITALS: BP 128/75
[2019-12-22 06:07] VITALS: BP 152/79
[2019-12-22 06:59] LABS: CALCIUM 8.6 mg/dL (8.5-10.1); CREATININE 0.9 mg/dL (0.7-1.3)
[2019-12-22 07:02] LABS: TROPONIN-I 1.63 ng/mL (<0.06)
[2019-12-22 08:00] VITALS: BP 137/74
--- NOTE | 2019-12-22 08:04 | NUR ---
pt states he was able to sleep uninterupted and feels well rested, no c/o pain r rad site dressing cdi, vss, hopes to go home today, report given to next shift to con't ppoc.
[2019-12-22] MEDS ORDERED: CLOPIDOGREL75 MG PO (08:45)
[2019-12-22] MEDS ORDERED: ASPIR 8181 MG PO (08:46)
[2019-12-22 09:29] VITALS: BP 137/74
--- NOTE | 2019-12-22 10:31 | NUR ---
ASSUMMED PT CARE AT APPROXIMATELY 0700. PT A&O X4. ASSESSMENT CHARTED. FALL PRECAUTIONS IN PLACE. PT DENIES HAVING CHEST PAIN. PT DENIES HAVING SOB. PT DENIES HAVING ACUTE PAIN. PT AMBULATES FREQUENTLY AROUND UNIT. PT AMBULATES STEADY/INDEPENDENT. PT DISCHARGING HOME C SELF CARE. PT RECEIVED DISCHARGE EDUCATION. PT STATED UNDERSTANDING AND DENIED HAVING FURTHER QUESTIONS. IV DC. TELE DC. VITAL SIGNS STABLE. PT COMMUNICATED C DR. AVILEZ'S NURSE REGAURDING NEW RX'S. PICKING UP PT. AWAITING FOR SPOUSE ARRIVAL. PT WILL RECIEVE HOSPITAL TRANSPORT OFF UNIT. PT COMFORTABLE. PT DENIES HAVING FURTHER CONCERNS.
== END 2019-12-22 10:45 | disposition home or self-care (01) | DRG 247 ==
LOC: ER 14:58 → EROBS 15:59 → 2N 15:59
PROVIDERS: Emergency Medicine; ADMIT Internal Medicine Cardiovascular Disease
PROC: 4A023N7 Measurement of Cardiac Sampling and Pressure, Left Heart, Percutaneous Approach (ICD-10-PCS; principal; 2019-12-20)
PROC: B211YZZ Fluoroscopy of Multiple Coronary Arteries using Other Contrast (ICD-10-PCS; principal; 2019-12-20)
PROC: B215YZZ Fluoroscopy of Left Heart using Other Contrast (ICD-10-PCS; principal; 2019-12-20)
PROC: 027034Z Dilation of Coronary Artery, One Artery with Drug-eluting Intraluminal Device, Percutaneous Approach (ICD-10-PCS; principal; 2019-12-20)
DX: I21.09 ST elevation (STEMI) myocardial infarction involving other coronary artery of anterior wall (principal); I10 Essential (primary) hypertension; E78.00 Pure hypercholesterolemia, unspecified; I48.0 Paroxysmal atrial fibrillation; Z95.5 Presence of coronary angioplasty implant and graft; Z87.891 Personal history of nicotine dependence; I25.2 Old myocardial infarction; Z86.73 Personal history of transient ischemic attack (TIA), and cerebral infarction without residual deficits; Z82.49 Family history of ischemic heart disease and other diseases of the circulatory system
CPT/HCPCS: 10081

== ENCOUNTER → 2020-04-08 | Outpatient (CLI) | payer BC, OTHER ==
[~2020-04-08] MED LIST changes: +ASPIR 8181 MG PO; +CLOPIDOGREL75 MG PO; +ELIQUIS5 MG PO
== END ==
LOC: SJCVCIMAG 08:44
PROVIDERS: ATTEND Internal Medicine Cardiovascular Disease
DX: I11.9 Hypertensive heart disease without heart failure (principal); I25.5 Ischemic cardiomyopathy; I48.0 Paroxysmal atrial fibrillation; I42.8 Other cardiomyopathies; E78.00 Pure hypercholesterolemia, unspecified; I47.2 Ventricular tachycardia; I25.10 Atherosclerotic heart disease of native coronary artery without angina pectoris; Z87.891 Personal history of nicotine dependence

== ENCOUNTER → 2020-11-26 | Outpatient (CLI) | payer BC, OTHER | LOC: SJCVCIMAG 14:32 | PROVIDERS: ATTEND Internal Medicine Cardiovascular Disease | DX: I70.203 Unspecified atherosclerosis of native arteries of extremities, bilateral legs (principal); I72.4 Aneurysm of artery of lower extremity; E78.00 Pure hypercholesterolemia, unspecified; F17.291 Nicotine dependence, other tobacco product, in remission ==

== ENCOUNTER 2020-12-08 13:24 | Inpatient (IN) | payer BC, OTHER ==
[~2020-12-08] VITALS: Ht 167.6 cm; Wt 110.9 kg
[2020-12-08 14:01] VITALS: BP 156/82
[2020-12-08 14:48] LABS: HEMOGLOBIN 15.3 gm/dL (14.0-18.0); MCH 30.2 pg (26.0-34.0); MCHC 33.2 g/dL (28.0-37.0); RBC 5.05 mil/uL (4.50-6.00); RDW 14.4 % (10.5-14.5); WBC 7.8 thou/uL (4.0-11.0)
[2020-12-08 15:02] LABS: CALCIUM 9.1 mg/dL (8.5-10.1); POTASSIUM 4.1 mmol/L (3.5-5.1)
[2020-12-08 17:10] VITALS: BP 128/98
[2020-12-08 18:04] LABS: APTT 28.2 Seconds (24.5-32.8); INR 0.99; PROTIME 10.8 Seconds (10.5-12.1)
--- NOTE | 2020-12-08 18:27 | NUR ---
PT ARRIVED TO UNIT APPROX 1745. VSS. ADMISSION COMPLETE. R GROIN CDI NO HEMATOMA. BEDREST POST PRETTY. URBANO NOTIFIED OF PT ARRIVAL. L FOOT COOL AND PALE. HEP GTT INITIATED PER PROTOCOL. PT EDUCATED ON LABS. TELE STRIP PRINTED AND DOCUMENTED. PLAN FOR PARK IN [place] CONSULTS TO SEE IN AM. DR CLEMENT CURRENTLY IN ROOM TALKING WITH PT. WILL CONTINUE POC AND PASS ON REPORT TO NOC RN.
[2020-12-08 19:07] LABS: HEMATOCRIT 42.9 % (42.0-52.0); HEMOGLOBIN 14.3 gm/dL (14.0-18.0); MCH 30.2 pg (26.0-34.0); MCHC 33.3 g/dL (28.0-37.0); MCV 90.7 fL (80.0-100.0); RBC 4.73 mil/uL (4.50-6.00); WBC 7.8 thou/uL (4.0-11.0)
[2020-12-08 19:24] LABS: CREATININE 1.1 mg/dL (0.7-1.3); POTASSIUM 3.9 mmol/L (3.5-5.1)
[2020-12-08 20:00] VITALS: BP 123/76
[2020-12-08 23:54] VITALS: BP 118/60
[2020-12-09 03:15] VITALS: BP 115/63
--- NOTE | 2020-12-09 05:12 | NUR ---
SLEPT PART OF SHIFT. AWAKE AT TIMES WITH LEFT FOOT PAIN WITH MEDICATIONS GIVEN WITH RELIEF. WORKING ON GOALS AND PLAN OF CARE FOR NOC. PATIENT DANGLES AT TIMES TO DECREASE PAIN. CONTINUE TO ASSES.
[2020-12-09 06:09] LABS: HEMATOCRIT 40.7 % (42.0-52.0); HEMOGLOBIN 13.9 gm/dL (14.0-18.0); MCH 31.1 pg (26.0-34.0); MCHC 34.1 g/dL (28.0-37.0); MCV 91.2 fL (80.0-100.0); RBC 4.46 mil/uL (4.50-6.00); RDW 14.2 % (10.5-14.5); WBC 7.7 thou/uL (4.0-11.0)
[2020-12-09 06:18] LABS: CALCIUM 8.7 mg/dL (8.5-10.1); CREATININE 1.1 mg/dL (0.7-1.3); POTASSIUM 4.2 mmol/L (3.5-5.1)
--- NOTE | 2020-12-09 06:28 | NUR ---
AT 0551 HAD 18 BEATS VT. PATIENT TURNING OVER IN BED AND GETTING BLOOD DRAWN. DENIES COMPLAINTS. AT [address] NOT CONCERNED AT THIS TIME. CONTINUE TO WATCH.
[2020-12-09 07:44] VITALS: BP 134/70
[2020-12-09 11:10] VITALS: BP 135/73
--- NOTE | 2020-12-09 13:29 | 2DMMODE ---
[facility] [place] [address] 2 D/M-MODE ECHOCARDIOGRAM Name: NONI DANIEL Rhea Room #: 206-P ADM IN M.R.#: [id number] Admission: 12/08/20 Attend Phys: Lorne Carranza MD Discharge: Date of : 57 Report #: [id number] THIS REPORT FOR: cc: Ida Baird MD, Cynthia MD Park, Jin S. MD ~ APPROVED REPORT Study performed: 12/09/2020 11:39:31 EXAM: Comprehensive 2D, Doppler, and color-flow Echocardiogram Patient Location: Bedside Room #: 206 Status: routine BSA: 2.16 HR: 70 bpm BP: 134/70 mmHg Rhythm: NSR Other Information Study Quality: Good Indications Arrhythmia CAD Hypertension/HDD 2D Dimensions RVDd: 37.54 mm IVSd: 11.49 (7-11mm) LVOT Diam: 23.80 (18-24mm) LVDd: 58.17 mm PWd: 11.67 (7-11mm) Ascending Ao: 35.23 (22-36mm) LVDs: 41.59 (25-40mm) Left Atrium: 45.47 (27-40mm) Aortic Root: 40.05 mm IVC: 19.00 mm Volumes Left Atrial Volume (Systole) Single Plane 4CH: 62.97 mL Single Plane 2CH: 57.81 mL LA ESV Index: 30.00 mL/m2 Aortic Valve AoV Peak Harrison.: 1.14 m/s AO Peak Gr.: 5.23 mmHg LVOT Max P.61 mmHg [facility] [address] [place] [address] 2 D/M-MODE ECHOCARDIOGRAM Name: NONI DANIEL Room #: 206-P [facility] IN ..#: [id number] Admission: 12/08/20 Attend Phys: Lorne Carranza, Discharge: Date of : 57 Report #: [id number] LVOT Max V: 0.95 m/s PETER Vmax: 3.69 cm2 Mitral Valve E/A Ratio: 1.1 MV Decel. Time: 244.79 ms MV E Max Harrison.: 0.79 m/s MV A Harrison.: 0.73 m/s MV PHT: 70.99 ms IVRT: 147.64 ms Pulmonary Valve PV Peak Harrison.: 0.73 m/s PV Peak Gr.: 2.14 mmHg Pulmonary Vein P Vein S: 0.47 m/s P Vein A: 0.27 m/s P Vein D: 0.25 m/s P Vein A Dur.: 110.7 msec P Vein S/D Ratio: 1.88 Tricuspid Valve TR Peak Harrison.: 2.39 m/s TR Peak Gr.: 22.94 mmHg PA Pressure: 28.00 mmHg Left Ventricle The left ventricle is normal size. There is hypokinesis in the basal lateral wall. There is hypokinesis in the inferior wall. There is normal left ventricular wall thickness. Left ventricular systolic function is mild to moderately decreased. LVEF is 40-45%. Grade II - pseudonormal filling dynamics. Right Ventricle The right ventricle is normal size. The right ventricular systolic function is normal. Atria The left atrium size is normal. The right atrium size is normal. Aortic Valve The aortic valve is normal in structure. No aortic regurgitation is present. There is no aortic valvular stenosis. Mitral Valve The mitral valve is normal in structure. Mild mitral regurgitation. No evidence of mitral valve stenosis. [facility] [address] [place] [address] 2 D/M-MODE ECHOCARDIOGRAM Name: TATESHANENONI Room #: 206-P [facility] IN ..#: [id number] Admission: 12/08/20 Attend Phys: Lorne Carranza, Discharge: Date of : 57 Report #: [id number] Tricuspid Valve The tricuspid valve is normal in structure. There is trace tricuspid regurgitation. No pulmonary hypertension Estimated PAP 28 mmHg. Pulmonic Valve The pulmonary valve is normal in structure. Trace pulmonic regurgitation. Great Vessels The aortic root is normal in size. IVC is normal in size and collapses >50% with inspiration. Pericardium There is no pericardial effusion. <Conclusion> The left ventricle is normal size. Left ventricular systolic function is mild to moderately decreased. LVEF is 40-45%. The right ventricle is normal size. The left atrium size is normal. The aortic valve is normal in structure. Mild mitral regurgitation. There is trace tricuspid regurgitation. No pulmonary hypertension Estimated PAP 28 mmHg. <ELECTRONICALLY SIGNED> By: David Call MD 12/09/209 28 28 David Call MD /INF
[2020-12-09 15:32] VITALS: BP 157/87
--- NOTE | 2020-12-09 15:40 | CATHLAB ---
[facility] [place] [address] INVASIVE PROCEDURE REPORT Name: NONI DANIEL Room #: 206-P ADM IN M.R.#: [id number] Admission: 12/08/20 Attend Phys: Lorne Carranza MD Discharge: Date of : 57 Report #: [id number] THIS REPORT FOR: cc: Ida Baird MD, Cynthia MD Park, Jin S. MD ~ APPROVED REPORT Study performed: 12/09/2020 13:40:49 Patient Details Patient Status: In-Patient Room #: 206 The patient is a 65 year-old male Event Personnel David Call Material Engineer, Melinda Pereira RTR Monitor, Magda Allen RTR Scrub, Meggan Orta RN RN, Levi Rosario RN wood cabinetmaker Performed Art Access - R radial artery Left Heart Cath w/or w/o Coronaries [id number] [facility] Hemostasis with Hemoband 58635 Initial Mod Sed Same Phys/QHP Gr5y [id number] Indication Arrhythmia, Pre-op clearance, The patient was admitted for claudication symptoms, found to have severe left SFA/popliteal occlusions. Scheduled to undergo lower extremity bypass. On telemetry, had nonsustained VT episodes. Risk Factors Peripheral Vascular Disease, Hypercholesterolemia, Coronary Artery DiseaseHypertension Previous Procedures/Diagnoses Previous PCI, Previous NV Procedure Narrative The Right Wrist^ was infiltrated with 1% Lidocaine subcutaneous anesthesia. A TRANSRADIAL SLENDER 6F GLIDESHEATH KIT #[id number] sheath was inserted into the Right Radial Artery^. Coronary angiography was performed using coronary diagnostic catheters. The right coronary system was accessed and visualized with a JR4 catheter. The left coronary system was accessed and visualized with a JL3.[address] [facility] [place] [address] INVASIVE PROCEDURE REPORT Name: FREDYNONI Rhea Room #: 206-P [facility] IN [facility]#: [id number] Admission: 12/08/20 Attend Phys: Lorne Carranza, Discharge: Date of : 57 Report #: [id number] The left ventricle was accessed and visualized with a ANGLED PIGTAIL catheter. The patient tolerated the procedure well and there were no complications associated with the procedure. There was no hematoma. Intraoperative Conscious Sedation Sedation start time: 14:44 Case end Time: 15:06 Fentanyl 100 mcg Versed 1 mg Fluoro Time: 3.40 minutes Dose: DAP 8927.20 cGycm2 1164 mGy Contrast Type and Amount: Omnipaque 65 ml Coronary Angiography The patient's coronary anatomy is right dominant. Diagnostic Cath Left Main The left main artery is a large-caliber vessel, appears angiographically normal. LAD The LAD is a moderate-sized caliber vessel, traverses the anterior wall and wraps around the apex. There is mild to moderate diffuse disease in the proximal segment, 30 to 40%. Diagonal 1 The first diagonal artery has a high takeoff off the LAD. There is a subtotal occlusion proximally. The distal vessel is filled via antegrade flow and collateral circulation. This is unchanged from prior procedures. Circumflex The left circumflex artery is a moderate-sized caliber vessel with mild disease proximally, 30%. OM1 The first OM is totally occluded in the proximal segment. The mid and distal segments are filled via collateral circulation. This is unchanged from prior procedures. OM2 This is a moderate-sized caliber vessel, patent with no flow-limiting lesions. Right Coronary The RCA is a dominant vessel. There are multiple overlapping stents from the proximal segment extending to the distal segment. There is mild to moderate restenosis in the proximal and mid segments, 30 to 40%. R PDA This is a patent vessel, with no flow-limiting lesions. RPLV This is a patent vessel, with no flow-limiting lesions. Left Ventriculography Left Ventriculography was not performed. Ejection Fraction was 40-45% based off patient's Echocardiogram. An LVEDP was measured and there is no gradient across the outflow tract. [address] [address] INVASIVE PROCEDURE REPORT Name: NONI DANIEL Room #: 206-P [facility] IN M.R.#: [id number] Admission: 12/08/20 Attend Phys: Lorne Carranza, Discharge: Date of : 57 Report #: [id number] Hemodynamics The aortic pressure is 138/81 mmHg with a mean of 101 mmHg. The left ventricular pressure is 147/9 mmHg with a mean of mmHg. The left ventricular end diastolic pressure is 17 mmHg. Conclusion 1. There are patent stents in the RCA with mild to moderate restenosis. 2. There is a patent stent in the mid LAD segment. 3. There are chronic occlusions involving the first diagonal and first OM vessels, with distal collaterals. Medical therapy is recommended. 4. There is mild to moderate segmental LV dysfunction. 5. Recommend guideline directed medical therapy and aggressive risk factor management. <ELECTRONICALLY SIGNED> By: David Call MD 12/09/20 1539 1539 1539 David Call MD /INF
[2020-12-09 15:45] LABS: HEMATOCRIT 39.6 % (42.0-52.0); HEMOGLOBIN 13.4 gm/dL (14.0-18.0); MCH 30.6 pg (26.0-34.0); MCHC 33.8 g/dL (28.0-37.0); MCV 90.5 fL (80.0-100.0); RBC 4.38 mil/uL (4.50-6.00); RDW 13.8 % (10.5-14.5); WBC 7.3 thou/uL (4.0-11.0)
[2020-12-09 15:58] LABS: PROTIME 10.4 Seconds (9.3-11.4)
[2020-12-09 19:30] VITALS: BP 127/60
--- NOTE | 2020-12-09 19:31 | NUR ---
ASSESSMENT CHARTED - MEDS PER SEP. NPO THIS AM AFTER BREAKFAST FOR HEART CATH DONE TODAY - RADIAL CLOSURE SITE - C/D/I. GROI C/D/I/ FOR LERO PROCEDURE DONE YESTERDAY. PT WITH CO'S OF L FOOT FEELING NUMB AND NUMBNESS MORE FREQUENT THAN IT WAS. PT TO HAVE FEM BY [employer] IN THE AM - SEEN BY DR ISBELL. MRSA AND CARVAJAL VIRUS SWABS TO LAB - BITH NEGATIVE. ECHO COMPLETED. VIVIANA DIET AND FLUIDS - TO BE NPO AFTER MN FOR SURGERY IN THE AM. HEPARIN DRIP TO BE RESTARTED @ 2100 THIS EVENING. IV FLUIDS ORDERED. VSS POST CATH. NO CO'S AT THE PRESENT TIME.
[2020-12-09 23:10] VITALS: BP 145/79
[2020-12-09 23:41] LABS: URINE BILIRUBIN NEGATIVE (Negative); URINE BLOOD NEGATIVE (Negative); URINE CLARITY CLEAR; URINE COLOR YELLOW; URINE GLUCOSE-RANDOM* NEGATIVE (Negative); URINE KETONES NEGATIVE (Negative); URINE LEUKOCYTES-REFLEX NEGATIVE (Negative); URINE NITRITE-REFLEX NEGATIVE (Negative); URINE PROTEIN (DIPSTICK) NEGATIVE (Negative); URINE SPECIFIC GRAVITY 1.015 (1.005-1.035); URINE UROBILINOGEN 0.2 E.U./dl (0.2-1.0)
[2020-12-10] VITALS (15 sets, daily range): BP systolic 87–146; BP diastolic 49–82
--- NOTE | 2020-12-10 04:15 | NUR ---
PM BATH COMPLETED. PATIENT UP IN ROOM. DANGLES WITH FEET OFF FLOOR HELPS WITH PAIN IN LEFT FOOT. NPO PAST MN FOR AM FEM POP. PAIN MEDICATIONS GIVEN NEEDED FOR PAIN CONTROL LEFT FOOT TOP LIFT CUTTER PLACES AND COOL MID FOOT TO TOES. FAINT PULSE FELT AT TIMES. FOOT PALE IN COLOR. DENIES COMPLAINTS OF SHORTNESS OF AIR. HEPARIN GTT RESTARTED LAST NOC PER ORDERS AT 2100. FOLLOW PROTOCOL. PROGRESSING TOWARDS GOALS FOR SURGERY. CONTINUE TO ASSES.
[2020-12-10 04:20] LABS: HEMATOCRIT 38.8 % (42.0-52.0); HEMOGLOBIN 12.9 gm/dL (14.0-18.0); MCH 30.2 pg (26.0-34.0); MCHC 33.2 g/dL (28.0-37.0); MCV 91.1 fL (80.0-100.0); RBC 4.26 mil/uL (4.50-6.00); WBC 7.7 thou/uL (4.0-11.0)
[2020-12-10 04:29] LABS: ALBUMIN 3.2 g/dL (3.4-5.0); CALCIUM 8.5 mg/dL (8.5-10.1); PHOSPHORUS 3.3 mg/dL (2.5-4.9); POTASSIUM 3.7 mmol/L (3.5-5.1)
--- NOTE | 2020-12-10 11:20 | NUR ---
assessment s charted - meds held this am due to npo status. pt had hibclens shower this am. iv fluids and haparin continue as ordered. pt up ad aleksandra in room - pt transfrered to surgery via bed at 1105 , belongigns taken to surgery with patient. no co's at time of transfer - pt to the ICU post -op.
--- NOTE | 2020-12-10 11:46 | NUR ---
Chart reveiwed and case discussed with the care team. Pt is now in the OR for fempop bypass surgery and will transfer to ICU postop. Pt is indep and lives with his . He has health insurance and pcp in place for f/u care at dc. Possible dc home in 2-3 days. No cm interventions indicated at this time. Will follow along should dc needs arise.
[2020-12-11] VITALS (27 sets, daily range): BP systolic 112–144; BP diastolic 54–77
[2020-12-11 04:42] LABS: HEMATOCRIT 35.2 % (42.0-52.0); HEMOGLOBIN 11.8 gm/dL (14.0-18.0); MCH 30.4 pg (26.0-34.0); MCHC 33.4 g/dL (28.0-37.0); MCV 90.8 fL (80.0-100.0); RBC 3.88 mil/uL (4.50-6.00); WBC 10.6 thou/uL (4.0-11.0)
[2020-12-11 04:54] LABS: CALCIUM 8.1 mg/dL (8.5-10.1); POTASSIUM 3.9 mmol/L (3.5-5.1)
--- NOTE | 2020-12-11 09:30 | HC ---
[facility] [place] [address] CONSULTATION Name: NONI DANIEL Room #: 250-P [facility] IN .R.#: [id number] Admission: 12/08/20 Attend Phys: Lorne Carranza MD Discharge: Date of : 57 Report #: [id number] THIS REPORT FOR: cc: Ida Baird MD, Cynthia MD Forman,Shiva De Jesus MD ~ DOC #: [id number] Shiva Delgado MD DATE OF SERVICE: 12/09/2020 We were asked to see the patient by Dr. Carranza. HISTORY OF PRESENT ILLNESS: The patient is a 65-year-old with rest pain in the left lower extremity. The patient has a history of coronary artery disease with myocardial infarct and previous stent placement. The patient was evaluated at the clinic on 11/30 for symptoms of claudication and paresthesias in feet. 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 The patient was holding Eliquis in preparation for arteriogram, but arteriogram, which was scheduled for today, but rest pain developed and the patient had emergent arteriogram yesterday that showed occlusion of the left popliteal artery with reconstitution of the distal popliteal/posterior tibioperoneal trunk. There is 3-vessel runoff, but it is suboptimal runoff. PAST MEDICAL HISTORY: As mentioned, the patient is status post coronary artery stent placement for myocardial infarct. The patient is treated for hypertension and dyslipidemia. The patient denies diabetes mellitus. MEDICATIONS AT HOME: Includes rosuvastatin, lisinopril, Protonix, amlodipine, apixaban which has been stopped, carvedilol, Plavix. ALLERGIES: None known. REVIEW OF SYSTEMS: GENERAL: No weight loss. No fever. EYES: No vision change. HEENT: No headache, sore throat, sinus problems. RESPIRATORY: No cough, shortness of breath. CARDIAC: Denies angina or palpitations. GASTROINTESTINAL: Denies nausea, vomiting blood. 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 GENITOURINARY: No urgency, frequency. MUSCULOSKELETAL: No bone or joint pain. SKIN: No rash or infection. NEUROLOGIC: Currently has paresthesias and numbness in the left foot and this has been progressive over the last few weeks. [address] [address] CONSULTATION Name: FREDYNONI Rhea Room #: 250-P [facility] IN M.R.#: [id number] Admission: 12/08/20 Attend Phys: Lorne Carranza MD Discharge: Date of : 57 Report #: [id number] VASCULAR: Had problems with claudication and now at night needs to sit up with a hang his leg over the side of the bed to get some sort of relief. PHYSICAL EXAMINATION: GENERAL: The patient is in bed, status post cardiac catheterization. VITAL SIGNS: Temperature 36.7, heart rate 73, respiratory rate 17, blood pressure 135/73, O2 sat 96% on room air. HEENT: No scleral icterus. No arcus. NECK: No mass, no bruit. CHEST: Clear to auscultation. HEART: Rhythm regular. ABDOMEN: Protuberant, but soft. No mass. EXTREMITIES: No clubbing, cyanosis. Left foot is cool to touch, but the patient has motion and there is a dark cast. No ulceration or gangrene. MUSCULOSKELETAL: No bone or joint asymmetry or deformity. NEUROLOGIC: As mentioned, numbness in the left foot, but full motion. PSYCHIATRIC: Oriented x 3, appropriate shows insight into problem. 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 I have recommended femoral popliteal artery bypass. Risks and details of this were discussed. Options and alternatives were reviewed. Runoff is suboptimal, but present and clearly this is a limb salvage situation. The patient understands all of this and wishes to proceed. He also understands the unpredictability of the success of the bypass with the vascular disease as it stands. We were added the patient on the surgical schedule and will attempt this limb salvage revascularization. Thank you for the consult. Shiva Delgado MD JF/ALL <ELECTRONICALLY SIGNED> By: Shiva Delgado MD 12/11/20 0930 1520 1601 Shiva Delgado MD /nt
--- NOTE | 2020-12-11 10:42 | NUR ---
AT APPX 1030, PT TRANSFERRED TO CCU ROOM 212 VIA W/C ON ROOM AIR. PT AMBULATED TO SIT ON SIDE OF BED. CARIN LAWRENCE IN ROOM TO RECEIVE PT. SHORT BEDSIDE UPDATE PROVIDED. PT'S IN ROOM. BRIEF ORIENTATION TO ROOM/UNIT COMPLETED, PT STATED THAT HE WAS ON THIS UNIT PRIOR TO ICU STAY. PT IN STABLE CONDITION UPON ARRIVAL TO CCU.
--- NOTE | 2020-12-12 04:04 | NUR ---
Assumed pt care at 1900. Patient is stable. No sign of distress noted in pt. Wound vac and GILL continues to be in place. Pt currently denies any pain. Fall precaution in place. Assessment completed and documented. Scheduled meds administered to pt. No acute events overnight. Continue to monitor. No further needs at this time.
[2020-12-12 04:29] VITALS: BP 135/73
[2020-12-12 04:41] LABS: HEMATOCRIT 32.2 % (42.0-52.0); HEMOGLOBIN 10.9 gm/dL (14.0-18.0); MCH 31.1 pg (26.0-34.0); MCV 91.7 fL (80.0-100.0); RBC 3.51 mil/uL (4.50-6.00); RDW 14.3 % (10.5-14.5); WBC 9.8 thou/uL (4.0-11.0)
[2020-12-12 08:00] VITALS: BP 125/65
[2020-12-12 12:31] VITALS: BP 133/75
[2020-12-12 15:55] VITALS: BP 130/74
[2020-12-12 16:00] VITALS: BP 130/74
--- NOTE | 2020-12-12 16:56 | NUR ---
PT CARE ASSUMED AT 0700. ASSESSMENTS CHARTED. MEDICATIONS CHARTED. RW IV. RAC IV. SINUS RHYTHM. WOUND VAC: LT GROIN, LT THIGH, LT BASHIR. GILL DRAINS: LT GROIN, LT ANKLE. WALKED PT APPROXIMATELY 60 FEET WITHOUT ISSUES. PT HAS TYRONE'S ESOPHAGUS. COVID NEGATIVE.
[2020-12-12 19:02] VITALS: BP 132/65
[2020-12-13] VITALS: BP 129/78
--- NOTE | 2020-12-13 02:34 | NUR ---
PT IS ALERT AND ORIENTED X4. LUNGS ARE CLEAR DIMINISHED IN BASES ON ROOM AIR. VOIDS PER URINAL AT BEDSIDE. PT DOES NOT COMPLAIN OF PAIN WATCHING TV IN ROOM THIS EVENING. DID WANT A SLEEPING PILL AT NIGHT. RIGHT 2PLUS PULSE. AND LEFT 1 PLUS PULSE. LEFT LEG MORE SWOLLEN NOTED. WOUND VAC ON LEFT LEG.PINK AND WARM BILAERATL ON FEET. CALL LIGHT WITHIN REACH IF NEEDS ASSISTANCE PER NURSING STAFF.
[2020-12-13 03:58] VITALS: BP 132/72
[2020-12-13 07:18] VITALS: BP 143/79
[2020-12-13 10:55] VITALS: BP 112/55
[2020-12-13 15:32] VITALS: BP 114/60
[2020-12-13 19:23] VITALS: BP 136/72
[2020-12-14 04:18] VITALS: BP 146/76
[2020-12-14 04:48] LABS: HEMATOCRIT 34.5 % (42.0-52.0); HEMOGLOBIN 11.6 gm/dL (14.0-18.0); MCH 30.5 pg (26.0-34.0); MCHC 33.5 g/dL (28.0-37.0); MCV 91.2 fL (80.0-100.0); RBC 3.79 mil/uL (4.50-6.00); RDW 14.1 % (10.5-14.5); WBC 8.5 thou/uL (4.0-11.0)
--- NOTE | 2020-12-14 05:13 | NUR ---
SLEPT MOST OF SHIFT. UP AT BEDSIDE TO VOID. WOUND VAC IN PLACE TO LEFT LEFT INCISIONS. DENIES NEED FOR PAIN MEDICATIONS. WORKING ON GOAL AND PLAN OF CARE FOR NOC. DRAIN #2 WITH 10CC OUT. PROGRESSING TOWARDS DISCHARGE GOALS FOR TODAY.
[2020-12-14 07:19] VITALS: BP 147/78
--- NOTE | 2020-12-14 09:35 | NUR ---
MET WITH PATIENT DISCUSSED HOME HEALTH CARE. NO PREFERENCE JUST WANTS IN NETWORK WITH INSURANCE. VERIFIED ADDRESS AND PCP. PLAN TO OBTAIN A WALKER FOR HOME. CONT TO FOLLOW
[2020-12-14] MEDS ORDERED: HYDROCODON-ACE1 EAC7 PO (09:59)
[2020-12-14 10:52] VITALS: BP 147/78
[2020-12-14 11:03] VITALS: BP 117/58
--- NOTE | 2020-12-14 12:15 | O ---
[facility] [place] [address] OPERATIVE REPORT Name: NONI DANIEL Room #: 212-P [facility] IN M.R.#: [id number] Admission: 12/08/20 Attend Phys: Lorne Carranza MD Discharge: Date of : 57 Report #: [id number] THIS REPORT FOR: cc: Ida Baird MD, Cynthia MD Forman,Shiva De Jesus MD ~ DOC #: [id number] Shiva Delgado MD DATE OF SERVICE: 12/10/2020 PREOPERATIVE DIAGNOSIS: Left lower extremity arterial occlusive disease. POSTOPERATIVE DIAGNOSIS: Left lower extremity arterial occlusive disease. OPERATION: Left femoral to below knee popliteal artery bypass with reversed autogenous greater saphenous vein and intraoperative arteriogram. SURGEON: Dr. Shiav Delgado. HISTOLOGY TEACHER: SEAN Cali. ANESTHESIA: General. INDICATION: The patient is a 65-year-old, referred by Dr. Carranza for limb threatening ischemia. The patient has severe rest pain in his left lower extremity and he has a total occlusion of the superficial femoral artery extending into the popliteal artery. There is reconstitution of the distal popliteal artery and posterior tibioperoneal trunk, but distal runoff was suboptimal. Unfortunately, this is a limb salvage situation and our options are limited. FINDINGS AND TECHNIQUE: After general anesthesia was established, incision was made below the knee over the greater saphenous vein. This was isolated and prepared for use as a conduit at least in this incision and then the incision was deepened to expose the below knee popliteal artery. The soleus was divided to expose more of the posterior tibioperoneal trunk and ultimately to expose an area that I felt was soft enough to be a distal target. An incision was made in the left groin to expose the common, deep and superficial femoral arteries. Once this was completed, the greater saphenous vein was exposed in this incision and then through other incisions saphenous vein had been exposed completely. The patient was heparinized, 10,000 units of heparin were given. Saphenous vein was removed and prepared for use as a conduit. The reversed vein was sewn in end-to-side fashion to the common femoral artery. The vein was then brought through the subcutaneous tunnels and the opposite end was sewn to the posterior tibioperoneal trunk. When the distal [address] [address] OPERATIVE REPORT Name: FREDYNONI Rhea Room #: 212-P [facility] IN ..#: [id number] Admission: 12/08/20 Attend Phys: Lorne Carranza MD Discharge: Date of : 57 Report #: [id number] clamps were released, there was clearly back flow into the vein. Flow was established through the graft. An arteriogram was taken that showed the vein was patent without twists. Flow was measured in the graft and found to be excellent and good Doppler signals were audible distally. Protamine was given to reverse the heparin. Hemostasis was ascertained in all areas. Two drains were placed and laid in the tunnel next to the vein and then the wounds were closed in layers when hemostasis was satisfactory. The patient tolerated the procedure well and was taken to the recovery area in good condition with a warm, pink foot. All counts were reported as correct. Shiva Delgado MD JF/SOUMYA <ELECTRONICALLY SIGNED> By: Shiva Delgado MD 12/14/20 1215 0836 1105 Shiva Delgado MD /nt
--- NOTE | 2020-12-14 12:50 | NUR ---
pt discharged home with home health, vs stable at this time dressings and wound vac intact with no drainage, pt educated on npo sunday for sunday outpt procedure on right leg. pt is aware and wheeled to car with all personal belongings
--- NOTE | 2020-12-14 14:08 | NUR ---
[facility] to [facility] home today with HH. Obtained walker for home via [facility]. SP with [facility]avan offered options for home health care. Patient with no preference wants to be assured in network with insurance. sp with Citlali garcia to meet with patient. Sara durham liason met with patient and can start HH care at id. no further needs
== END 2020-12-14 13:56 | disposition home health service (06) | DRG 253 ==
LOC: CATH 13:24 → 2N 17:08 → TBA 17:09 → CATH 12-09 10:06 → TBA 12-10 11:17 → ICU 12-10 21:08 → 2N 12-11 10:32
PROVIDERS: Hospitalist; Nurse Practitioner; Physician Assistant; Surgery Vascular Surgery; ADMIT Hospitalist; ATTEND Nuclear Medicine Nuclear Cardiology
DX: I70.208 Unspecified atherosclerosis of native arteries of extremities, other extremity (principal); I42.9 Cardiomyopathy, unspecified; I25.10 Atherosclerotic heart disease of native coronary artery without angina pectoris; I10 Essential (primary) hypertension; E78.5 Hyperlipidemia, unspecified; I48.0 Paroxysmal atrial fibrillation; Z20.822 Contact with and (suspected) exposure to COVID-19; I25.2 Old myocardial infarction; Z79.82 Long term (current) use of aspirin; Z79.899 Other long term (current) drug therapy; Z87.891 Personal history of nicotine dependence; Z95.5 Presence of coronary angioplasty implant and graft; Z86.73 Personal history of transient ischemic attack (TIA), and cerebral infarction without residual deficits; Z80.0 Family history of malignant neoplasm of digestive organs; Z82.49 Family history of ischemic heart disease and other diseases of the circulatory system
CPT/HCPCS: 10078; 10081; 47375; 50010; 50331; 50386; 50455; 50643; 50953; 51412; 51481; 52287; 56524; 56526; 56528; 56531; 56534; 56668; 56760; 57092; 57167; 58368; 83006

== ENCOUNTER → 2020-12-30 | Outpatient (CLI) | payer BC, OTHER ==
[~2020-12-30] VITALS: Ht 170.2 cm; Wt 106.6 kg
[~2020-12-30] MED LIST changes: +HYDROCODON-ACE1 EAC7 PO
[2020-12-30 07:24] VITALS: BP 147/80
[2020-12-30 07:53] LABS: HEMATOCRIT 37.3 % (42.0-52.0); HEMOGLOBIN 12.6 gm/dL (14.0-18.0); MCH 30.5 pg (26.0-34.0); MCHC 33.9 g/dL (28.0-37.0); RBC 4.15 mil/uL (4.50-6.00); RDW 14.4 % (10.5-14.5)
[2020-12-30 08:08] LABS: CALCIUM 8.8 mg/dL (8.5-10.1); CREATININE 0.9 mg/dL (0.7-1.3)
[2020-12-30 08:10] LABS: POTASSIUM 4.6 mmol/L (3.5-5.1)
== END | disposition home or self-care (01) ==
LOC: CATH 12-20 07:13
PROVIDERS: ATTEND Nuclear Medicine Nuclear Cardiology
DX: I70.211 Atherosclerosis of native arteries of extremities with intermittent claudication, right leg (principal); I72.4 Aneurysm of artery of lower extremity; M79.604 Pain in right leg; I25.10 Atherosclerotic heart disease of native coronary artery without angina pectoris; I10 Essential (primary) hypertension; E78.5 Hyperlipidemia, unspecified; I25.2 Old myocardial infarction; I48.91 Unspecified atrial fibrillation; Z98.890 Other specified postprocedural states; Z79.899 Other long term (current) drug therapy; Z87.891 Personal history of nicotine dependence; Z86.73 Personal history of transient ischemic attack (TIA), and cerebral infarction without residual deficits

== ENCOUNTER → 2021-01-04 | Outpatient (CLI) | payer BC, OTHER | LOC: SJCVCIMAG 11:29 | PROVIDERS: ATTEND Nuclear Medicine Nuclear Cardiology | DX: I70.201 Unspecified atherosclerosis of native arteries of extremities, right leg (principal); Z95.820 Peripheral vascular angioplasty status with implants and grafts; Z87.891 Personal history of nicotine dependence ==

== ENCOUNTER → 2021-03-31 | Outpatient (CLI) | payer OTHER, MEDICARE | LOC: SJCVCIMAG 10:42 | PROVIDERS: ATTEND Nuclear Medicine Nuclear Cardiology | DX: I65.23 Occlusion and stenosis of bilateral carotid arteries (principal); I70.201 Unspecified atherosclerosis of native arteries of extremities, right leg; Z79.899 Other long term (current) drug therapy; I25.10 Atherosclerotic heart disease of native coronary artery without angina pectoris; E78.00 Pure hypercholesterolemia, unspecified; I10 Essential (primary) hypertension; F17.201 Nicotine dependence, unspecified, in remission; Z86.73 Personal history of transient ischemic attack (TIA), and cerebral infarction without residual deficits; Z95.5 Presence of coronary angioplasty implant and graft; Z95.828 Presence of other vascular implants and grafts; Z72.89 Other problems related to lifestyle ==

== ENCOUNTER → 2021-04-06 | Outpatient (CLI) | payer OTHER, MEDICARE | LOC: SJCVC 10:03 | PROVIDERS: ATTEND Nuclear Medicine Nuclear Cardiology | DX: I73.9 Peripheral vascular disease, unspecified (principal); I25.10 Atherosclerotic heart disease of native coronary artery without angina pectoris; E78.00 Pure hypercholesterolemia, unspecified; I48.91 Unspecified atrial fibrillation; I63.311 Cerebral infarction due to thrombosis of right middle cerebral artery; E78.5 Hyperlipidemia, unspecified; K21.9 Gastro-esophageal reflux disease without esophagitis; Z79.899 Other long term (current) drug therapy; Z87.891 Personal history of nicotine dependence; Z72.89 Other problems related to lifestyle; Z95.5 Presence of coronary angioplasty implant and graft; Z95.828 Presence of other vascular implants and grafts ==

== ENCOUNTER → 2021-07-13 | Outpatient (CLI) | payer OTHER, MEDICARE | LOC: SJCVC 10:19 | PROVIDERS: ATTEND Internal Medicine Cardiovascular Disease | DX: R94.31 Abnormal electrocardiogram [ECG] [EKG] (principal); I73.9 Peripheral vascular disease, unspecified; I25.10 Atherosclerotic heart disease of native coronary artery without angina pectoris; I10 Essential (primary) hypertension; K21.9 Gastro-esophageal reflux disease without esophagitis; E78.5 Hyperlipidemia, unspecified; E78.00 Pure hypercholesterolemia, unspecified; Z79.899 Other long term (current) drug therapy; Z87.891 Personal history of nicotine dependence; Z72.89 Other problems related to lifestyle; Z95.1 Presence of aortocoronary bypass graft ==